=== PATIENT | male | born 1985 | race Caucasian/White ===

== ENCOUNTER 2020-06-25 08:55 | Emergency (ER) | payer OTHER ==
[~2020-06-25 08:55] MED LIST: IBUPROFEN600 MG PO
[2020-06-25 12:48] LABS: HEMOGLOBIN 15.7 gm/dl (14.0-17.5); RED BLOOD COUNT 5.45 M/UL (4.20-5.50); WHITE BLOOD COUNT 7.5 K/UL (4.5-11.0)
[2020-06-25 13:18] LABS: BUN/CREATININE RATIO 11 (0-10)
== END 2020-06-25 14:20 | disposition home or self-care (01) ==
LOC: ER1 08:55
PROVIDERS: Physician Assistant
DX: R00.2 Palpitations (principal); I10 Essential (primary) hypertension
CPT/HCPCS: 71045; 80053; 84439; 84443; 85025; 93005; 99285

== ENCOUNTER → 2020-06-27 | Outpatient (CLI) | payer OTHER | LOC: RT 13:04 | DX: R00.2 Palpitations (principal) ==